=== PATIENT | male | born 2000 | race Caucasian/White ===

== ENCOUNTER 2024-03-21 23:17 | Emergency (ER) | payer MEDICAID ==
[~2024-03-21] VITALS: Ht 180.3 cm; Wt 75.0 kg
[2024-03-21 23:26] VITALS: O2SAT 98
[2024-03-21] MEDS: ACETAMINOPHEN 325MG TABLET PO ONE (23:52)
[2024-03-21] MEDS: SODIUM CHLORIDE 0.9% 1,000 ML IV ONE (23:52)
[2024-03-22 00:04] LABS: BASOPHILS % 0.3 % (0.0-2.0); HEMATOCRIT. 41.1 % (42.0-52.0); HEMOGLOBIN. 14.2 g/dL (14.0-18.0); MEAN CORPUSCULAR HEMOGLOBIN 30.9 pg (28.0-32.0); MEAN CORPUSCULAR HGB CONC 34.4 g/dL (31.0-37.0); MEAN CORPUSCULAR VOLUME 89.8 fL (80.0-94.0); MEAN PLATELET VOLUME 8.3 fl (7.4-10.4); MONOCYTES % 7.2 % (2.0-8.0); NEUTROPHILS % 67.5 % (40.0-76.0); PLATELET 199 x1000/uL (130-400); RED BLOOD CELL COUNT 4.58 mill/uL (4.7-6.1); RED CELL DISTRIBUTION WIDTH 12.6 % (11.6-14.6); WHITE BLOOD COUNT 8.6 x1000/uL (4.5-11.0)
[2024-03-22 00:07] LABS: CHLORIDE 103 mEq/L (98-107); POTASSIUM 3.6 mEq/L (3.5-5.1); SODIUM 141 mEq/L (136-145)
[2024-03-22 00:08] LABS: CALCIUM 9.6 mg/dL (8.7-10.4); CARBON DIOXIDE 32 mEq/L (21-32)
[2024-03-22 00:13] LABS: CREATININE 1.2 mg/dL (0.6-1.3); GLUCOSE 85 mg/dL (70-105); UREA NITROGEN BLOOD 15 mg/dL (9-23)
[2024-03-22 00:15] LABS: ACETAMINOPHEN < 2 ug/mL (10-30)
[2024-03-22 00:19] LABS: ETHANOL BLOOD < 10 mg/dL (<10); TROPONIN I HIGH SENSITIVITY < 4 ng/L (3.0-53)
[2024-03-22] MEDS ORDERED: ACET-2708 MT (01:03)
[2024-03-22 01:30] VITALS: BP 106/65; PULSE 65; RESP 18; TEMP 36.7; O2SAT 98
== END 2024-03-22 01:30 | disposition home or self-care (01) ==
LOC: ER 23:17
DX: S93.402A Sprain of unspecified ligament of left ankle, initial encounter (principal); F12.90 Cannabis use, unspecified, uncomplicated; R55 Syncope and collapse; F19.90 Other psychoactive substance use, unspecified, uncomplicated; Z79.899 Other long term (current) drug therapy; X50.1XXA Overexertion from prolonged static or awkward postures, initial encounter; Y93.89 Activity, other specified; Y92.89 Other specified places as the place of occurrence of the external cause; Y99.8 Other external cause status
CPT/HCPCS: 80048; 80307; 80329; 80320; 85025; 84484; 36415; 73610; 99284; J7030; G0480

== ENCOUNTER 2024-09-15 06:27 | Emergency (ER) | payer MEDICAID ==
[~2024-09-15] VITALS: Ht 188 cm; Wt 81.0 kg
[~2024-09-15 06:27] MED LIST: ACET-2708 MT
[2024-09-15 06:38] VITALS: O2SAT 100
[2024-09-15] MEDS: ONDANSETRON 4MG ODT PO ONE (07:19)
[2024-09-15] MEDS: BUPRENORPHINE 8MG SL TABLET SL ONE (07:29)
[2024-09-15 07:42] LABS: BASOPHILS % 0.2 % (0.0-2.0); EOSINOPHILS % 1.5 % (0.0-5.0); HEMATOCRIT. 39.9 % (42.0-52.0); HEMOGLOBIN. 13.5 g/dL (14.0-18.0); LYMPHOCYTES % 10.3 % (20.0-50.0); MEAN PLATELET VOLUME 8.1 fl (7.4-10.4); MONOCYTES % 4.1 % (2.0-8.0); NEUTROPHILS % 83.9 % (40.0-76.0); PLATELET 199 x1000/uL (130-400); RED BLOOD CELL COUNT 4.58 mill/uL (4.7-6.1); RED CELL DISTRIBUTION WIDTH 13.0 % (11.6-14.6)
[2024-09-15 08:01] LABS: CREATININE 0.8 mg/dL (0.6-1.3); UREA NITROGEN BLOOD 12 mg/dL (9-23)
[2024-09-15 08:03] LABS: ASPARTATE AMINOTRANSFERASE 20 IU/L (<34); BILIRUBIN TOTAL 0.5 mg/dL (0.1-1.0); PROTEIN TOTAL 6.7 g/dL (6.0-8.3)
[2024-09-15] MEDS ORDERED: BUPR1FIL5 SL (08:40)
[2024-09-15] MEDS ORDERED: NALO4SPR BOTHNSTRLS (08:40)
[2024-09-15 09:04] VITALS: BP 111/74; PULSE 74; RESP 14; TEMP 36.7; O2SAT 100
== END 2024-09-15 09:18 | disposition home or self-care (01) ==
LOC: ER 06:42
DX: F11.23 Opioid dependence with withdrawal (principal); F12.90 Cannabis use, unspecified, uncomplicated
CPT/HCPCS: 80053; 83690; 85025; 36415; 99283; Q0162; Z7610